=== PATIENT | female | born 1930 | race Caucasian/White ===

== ENCOUNTER 2016-12-26 09:31 | Day surgery (SDC) | payer MEDICARE ==
--- NOTE | ~2016-12-26 | EGD ---
EGD REPORT [facility] [address] [id number] NAME: GABY GARIBAY : [birth year] STATUS : REG [facility]#: [id number] AGE: 86 ADM/REG DATE : 12/26/16 MR#: [id number] REPORT SERV DATE: 12/26/16 DICTATED BY: ALBERTO PARIS DATE: 12/26/16 REPORT STATUS : Draft TRANSCRIBED BY: [employer] DATE: 12/26/16 Endoscopy Center Patient Name: Gaby Garibay Date of : 1930 Attending MD: ALBERTO PARIS MD Procedure Date No Time: 12/26/2016 Procedure: Upper GI endoscopy Indications: Follow-up of acute gastric ulcer, Follow-up of acute duodenal ulcer Referring MD: LEXA MORROW Medicines: as per anesthesia Complications: No immediate complications. Procedure: Pre-Anesthesia Assessment: - ASA Grade Assessment: III - A patient with severe systemic disease. After obtaining informed consent, the endoscope was passed under direct vision. Throughout the procedure, the patient's blood pressure, pulse, and oxygen saturations were monitored continuously. The GIF [id number] was introduced through the mouth, and advanced to the third part of duodenum. The upper GI endoscopy was accomplished without difficulty. The patient tolerated the procedure. Findings: The examined esophagus was normal. Localized mild inflammation characterized by erythema was found in the gastric antrum. Biopsies were taken with a cold forceps for histology. The cardia and gastric fundus were normal on retroflexion. The examined duodenum was normal. Impression: - Normal esophagus. - Gastritis. Biopsied. - Normal examined duodenum. Recommendation: - Await pathology results. - Continue present medications. Procedure Code(s): --- Professional --- 33248, Esophagogastroduodenoscopy, flexible, transoral; with biopsy, single or multiple Diagnosis Code(s): --- Professional --- K29.70, Gastritis, unspecified, without bleeding K25.3, Acute gastric ulcer without hemorrhage or EGD REPORT [place] [address] [address] [id number] NAME: GABY GARIBAY : 34 STATUS : REG [facility] PAT#: [id number] AGE: 86 ADM/REG DATE : 12/26/16 MR#: [id number] REPORT SERV DATE: 12/26/16 DICTATED BY: ALBERTO PARIS. DATE: 12/26/16 REPORT STATUS : Draft TRANSCRIBED BY: [employer] DATE: 12/26/16 perforation K26.3, Acute duodenal ulcer without hemorrhage or perforation CPT copyright 2013 [employer]. All rights reserved. The codes documented in this report are preliminary and upon health information coder review may be revised to meet current compliance requirements. ALBERTO PARIS MD 12/26/2016 12:02 PM This report has been signed electronically. Number of Addenda: 0 Note Initiated On: 12/26/2016 11:47 AM Scope Withdrawal Time 0 hours 0 minutes 0 seconds [address] [id number]
[~2016-12-26 09:31] MED LIST: ASAB PO; CALTRA600D PO; CO Q-10100 MG PO; DRAMAMINE25 MG PO; FLAXSEED OIL1000 MG PO; FOSAMAX70 MG PO; IMDUR30 PO; KLONO5 PO; LOP25 PO; MELA3 PO; NITROSTAT0.4 MG SL; PRILOSEC OTC20 MG PO; STOOL SOFTEN100 MG PO; VITAMIN D31000 UNIT PO; VITE PO; ZOCOR10 PO; [UNRECOGNIZED DRUG - OTHER]
== END 2016-12-26 23:59 | disposition home health service (06) ==
LOC: DMU 09:31
PROVIDERS: Internal Medicine Gastroenterology
PROC: 0DB68ZX Excision of Stomach, Via Natural or Artificial Opening Endoscopic, Diagnostic (ICD-10-PCS; principal; 2016-12-26 11:00)
DX: K29.50 Unspecified chronic gastritis without bleeding (principal); K25.3 Acute gastric ulcer without hemorrhage or perforation; K26.3 Acute duodenal ulcer without hemorrhage or perforation; E78.5 Hyperlipidemia, unspecified; I25.10 Atherosclerotic heart disease of native coronary artery without angina pectoris; M19.90 Unspecified osteoarthritis, unspecified site; M81.0 Age-related osteoporosis without current pathological fracture; K21.9 Gastro-esophageal reflux disease without esophagitis; Z90.49 Acquired absence of other specified parts of digestive tract; Z98.41 Cataract extraction status, right eye; Z98.42 Cataract extraction status, left eye; Z98.890 Other specified postprocedural states
CPT/HCPCS: 88305; 88342